=== PATIENT | male | born 1935 | race Caucasian/White ===

== ENCOUNTER 2017-12-18 19:29 | Emergency (ER) | payer MEDICARE, BC ==
--- NOTE | 2017-12-18 19:45 | ER Report ---
History and Physical Time Seen By MD: 19:45 Hx. of Stated Complaint: NOT FROM HERE; COPD; PT SPO2 IN THE CAR WAS 76% ON ROOM AIR; PATIENTS SPO2 AT HOSPITAL WAS 72% ON ROOM AIR TODAY HPI/ROS CHIEF COMPLAINT: shortness of breath, hypoxia HISTORY OF PRESENT ILLNESS: This is an 82 year old male. Moving from [place] to [place]. Has COPD and CHF. Has not been at elevation previously. Had started to get short of breath between [place] and [place]. His nurse who accompanies him, checked his pulse ox and he was in the low 70s on room air. He has a history of DVT and PE, with temporary filter that has been removed and is on twice daily Eliquis. He has mild cough. No chest pain. No swelling or pain in legs. No fevers or chills. Nurse thought that he had some mild rales in the left lung base. No musculoskeletal pain or back pain. Allergies: Coded Allergies: Sulfa (Sulfonamide Antibiotics) (Verified Allergy, Unknown, 12/18/17) cefuroxime (Verified Allergy, Unknown, 12/18/17) fluticasone (Verified Allergy, Unknown, 12/18/17) ranitidine (Verified Allergy, Unknown, 12/18/17) salmeterol (Verified Allergy, Unknown, 12/18/17) tamsulosin (Verified Allergy, Unknown, 12/18/17) Home Meds Reported Medications Umeclidinium Brm/Vilanterol Tr (Anoro Ellipta 62.5-25 Mcg INH) 1 Each Disk.w.dev 12/18/17 Pantoprazole Sodium (PANTOPRAZOLE SODIUM) 40 Mg Tablet.dr, 40 MG PO QDAY, TAB.SR 12/18/17 Furosemide (FUROSEMIDE) 20 Mg Tablet, 20 TAB PO Q6H, TAB 12/18/17 Apixaban (ELIQUIS) 5 Mg Tablet, 5 MG PO 12/18/17 Metoprolol Tartrate (METOPROLOL TARTRATE) 25 Mg Tablet, 1 TAB PO BID, TAB 12/18/17 Prednisone 10 Mg Tab (PREDNISONE 10 MG TAB) 10 Mg Tablet, 5 MG PO BID, #3 TAB 12/18/17 Budesonide (BUDESONIDE) 0.25 Mg/2 Ml Ampul.neb, 0.25 MG IH BID, ML 12/18/17 Albuterol Sulfate 0.083% (ALBUTEROL SULFATE 0.083%) 2.5 Mg/3 Ml Vial.neb, 2.5 MG INH, INH 12/18/17 Reviewed Nurses Notes: Yes Constitutional Vital Sign - Last 24 Hours 12/18/17 12/18/17 12/18/17 12/18/17 19:36 19:37 19:59 20:03 Temp 97.8 Pulse 81 77 Resp 17 12 B/P (MAP) 131/77 120/79 (93) Pulse Ox 73 95 O2 Delivery Room Air O2 Flow Rate 4.0 12/18/17 12/18/17 12/18/17 12/18/17 20:14 20:26 20:26 20:29 Pulse 96 76 ??? Resp 16 27 Pulse Ox 95 95 O2 Delivery Nasal Cannula O2 Flow Rate 1.0 12/18/17 12/18/17 12/18/17 12/18/17 20:30 20:33 20:59 21:00 Pulse 72 77 Resp 14 22 B/P (MAP) 107/75 (86) 114/71 (85) Pulse Ox 91 12/18/17 12/18/17 12/18/17 12/18/17 21:15 21:30 21:45 22:10 Pulse 75 75 78 Resp 10 20 11 B/P (MAP) 121/52 (75) 119/69 (86) Pulse Ox 92 92 92 12/18/17 12/18/17 12/18/17 12/18/17 22:15 22:30 22:45 23:00 Pulse 74 72 75 71 Resp 9 11 9 10 B/P (MAP) 111/62 (78) 109/68 (82) Pulse Ox 95 95 95 94 12/18/17 12/18/17 12/19/17 12/19/17 23:15 23:30 00:00 00:15 Pulse 75 79 Resp 11 14 B/P (MAP) 113/71 (85) 109/70 (83) Pulse Ox 94 94 12/19/17 12/19/17 12/19/17 00:55 00:55 01:00 Pulse 83 78 Resp 14 14 Pulse Ox 90 O2 Delivery Nasal Cannula O2 Flow Rate 1.0 Physical Exam General Appearance: The patient is alert. No acute distress. Eyes: Pupils are equal, round. No pallor, injection or icterus. ENT: Mucous membranes are moist. Normal oral mucosa and posterior oropharynx. Neck: Supple and non tender. Respiratory: Lungs are clear to auscultation. Cardiovascular: Regular rate and rhythm. No murmurs, gallops or rubs. Normal capillary refill. Gastrointestinal: Abdomen is soft and non tender. Nondistended. Normal active bowel sounds. Neurological: Alert and oriented x3. Skin: Warm and dry. No rashes. Musculoskeletal: Extremities are nontender. No tenderness in palpation of the cervical, thoracic and lumbar spine. DIFFERENTIAL DIAGNOSIS: After history and physical exam, differential diagnosis was considered for shortness breath and hypoxia, likely due to altitude, we'll check for CHF exacerbation, acute coronary syndrome, pulmonary infectious process Medical Decision Making Data Points Result Diagram: 12/18/17194412/18/171944 Laboratory Hematology Test 12/18/17 19:45 12/18/17 23:28 Red Blood Count 4.92 M/uL (4.00-5.60) Mean Corpuscular Volume 86.8 fL (80.0-96.0) Mean Corpuscular Hemoglobin 29.3 pg (26.0-33.0) Mean Corpuscular Hemoglobin Concent 33.8 g/dL (32.0-36.0) Red Cell Distribution Width 14.6 % (11.5-14.5) Mean Platelet Volume 7.2 fL (7.2-11.1) Neutrophils (%) (Auto) 61.7 % (39.4-72.5) Lymphocytes (%) (Auto) 17.5 % (17.6-49.6) Monocytes (%) (Auto) 12.6 % (4.1-12.4) Eosinophils (%) (Auto) 7.2 % (0.4-6.7) Basophils (%) (Auto) 1.0 % (0.3-1.4) Nucleated RBC Relative Count (auto) 0.2 /100WBC Neutrophils # (Auto) 3.5 K/uL (2.0-7.4) Lymphocytes # (Auto) 1.0 K/uL (1.3-3.6) Monocytes # (Auto) 0.7 K/uL (0.3-1.0) Eosinophils # (Auto) 0.4 K/uL (0.0-0.5) Basophils # (Auto) 0.1 K/uL (0.0-0.1) Nucleated RBC Absolute Count (auto) 0.01 K/uL Sodium Level 141 mmol/L (137-145) Potassium Level 3.4 mmol/L (3.5-5.0) Chloride Level 97 mmol/L (98-107) Carbon Dioxide Level 34 mmol/L (22-30) Blood Urea Nitrogen 24 mg/dl (9-21) Creatinine 1.20 mg/dl (0.66-1.25) Glomerular Filtration Rate Calc 58.3 Random Glucose 86 mg/dl (75-110) Calcium Level 9.3 mg/dl (8.4-10.2) Total Bilirubin 0.3 mg/dl (0.2-1.3) Aspartate Amino Transf (AST/SGOT) 28 U/L (0-35) Alanine Aminotransferase (ALT/SGPT) 33 U/L (0-56) Alkaline Phosphatase 45 U/L (0-126) B-Type Natriuretic Peptide 130 pg/ml (0-100) Total Protein 6.4 g/dl (6.3-8.2) Albumin 4.0 g/dl (3.5-5.0) Troponin I 0.018 ng/ml Chemistry Test 12/18/17 19:45 12/18/17 23:28 White Blood Count 5.7 k/uL (4.5-11.0) Red Blood Count 4.92 M/uL (4.00-5.60) Hemoglobin 14.4 g/dL (14.0-18.0) Hematocrit 42.7 % (42.0-52.0) Mean Corpuscular Volume 86.8 fL (80.0-96.0) Mean Corpuscular Hemoglobin 29.3 pg (26.0-33.0) Mean Corpuscular Hemoglobin Concent 33.8 g/dL (32.0-36.0) Red Cell Distribution Width 14.6 % (11.5-14.5) Platelet Count 227 K/uL (150-450) Mean Platelet Volume 7.2 fL (7.2-11.1) Neutrophils (%) (Auto) 61.7 % (39.4-72.5) Lymphocytes (%) (Auto) 17.5 % (17.6-49.6) Monocytes (%) (Auto) 12.6 % (4.1-12.4) Eosinophils (%) (Auto) 7.2 % (0.4-6.7) Basophils (%) (Auto) 1.0 % (0.3-1.4) Nucleated RBC Relative Count (auto) 0.2 /100WBC Neutrophils # (Auto) 3.5 K/uL (2.0-7.4) Lymphocytes # (Auto) 1.0 K/uL (1.3-3.6) Monocytes # (Auto) 0.7 K/uL (0.3-1.0) Eosinophils # (Auto) 0.4 K/uL (0.0-0.5) Basophils # (Auto) 0.1 K/uL (0.0-0.1) Nucleated RBC Absolute Count (auto) 0.01 K/uL Glomerular Filtration Rate Calc 58.3 Calcium Level 9.3 mg/dl (8.4-10.2) Total Bilirubin 0.3 mg/dl (0.2-1.3) Aspartate Amino Transf (AST/SGOT) 28 U/L (0-35) Alanine Aminotransferase (ALT/SGPT) 33 U/L (0-56) Alkaline Phosphatase 45 U/L (0-126) B-Type Natriuretic Peptide 130 pg/ml (0-100) Total Protein 6.4 g/dl (6.3-8.2) Albumin 4.0 g/dl (3.5-5.0) Troponin I 0.018 ng/ml EKG/Imaging EKG Interpretation 12 lead EKG: Rhythm: normal sinus rhythm, rate 73 [place]: normal QRS: normal ST segments: normal Imaging EXAMINATION: Chest 2 Views HISTORY: Respiratory distress. COMPARISON: None. FINDINGS: The lungs are hyperinflated with mild emphysematous change. No suspicious focal consolidation. No pleural effusion or pneumothorax. Normal heart size and pulmonary vascularity. Aortic calcification. Visualized osseous structures appear intact. Mild pectus excavatum. IMPRESSION: 1. Hyperinflation with mild emphysematous changes. 2. No other acute findings in the chest. Report Dictated By: Jasvir Borja MD at 12/18/2017 10:33 PM ED Course/Re-evaluation Clinical Indication for ER IV: Hydration, IV Access ED Course Labs are unremarkable other than some mild changes in the metabolic panel. Negative white count. Troponin negative. Repeat troponin after several hours was again negative. EKG without signs of ischemia. X-ray negative for pulmonary infectious process. Discussed all this with the patient. Offered to do a CT scan of the chest to rule out PE but they did not want to do this and I felt like PE was less likely given the fact that he is on [place]. This does appear to be altitude related illness and hypoxia associated with his chronic diseases COPD and CHF. Arrange for home oxygen temporarily to be reevaluated once he follows up with a primary care provider in his new home in [place], [place] Decision to Disposition Date: Dec 19, 2017 Decision to Disposition Time: 00:16 Depart Departure Latest Vital Signs Vital Signs Date Time Temp Pulse Resp B/P (MAP) Pulse Ox O2 Delivery O2 Flow Rate FiO2 12/19/17 01:00 78 14 12/19/17 00:55 90 Nasal Cannula 1.0 12/19/17 00:00 109/70 (83) 12/18/17 19:36 97.8 Impression: Primary Impression: CHF (congestive heart failure) Additional Impressions: Hypoxia Altitude sickness Condition: Improved Disposition: HOME OR SELF-CARE Departure Forms: Home Oxygen, Nebulizer RX Durable Medical Equipment- Oxygen: Oxygen Concentrator, Portable Oxygen Gas Reason for Use/Diagnosis: congestive heart failure, hypoxia, acute altitude sickness Start Date of the Order: Dec 19, 2017 Dosage or Concentration (if applicable) - LPM: 2 Route of Administration (if applicable): Nasal Cannula Frequency of Use: Continuous Duration Home O2 Required: 4 Duration Units: Months Room Air Oxygen Saturation: 73 ER Prescribing Physician's Name: Chelsea Vance NPI Numbers for Local ER MDs: [id number] Patient Instructions: Heart Failure (ED), Hypoxia (ED), Mountain Sickness (ED) Additional Instructions: Your lower oxygen is a combination of your heart failure and higher elevation here. No other problems noted on exam and labs tonight. We would like to have you use oxygen at 2 liters by nasal canula continuously until you follow-up with primary care at your new home in [place]. Problem Qualifiers Primary Impression: CHF (congestive heart failure) Heart failure type: unspecified Heart failure chronicity: unspecified Qualified Codes: I50.9 - Heart failure, unspecified Additional Impressions: Altitude sickness Encounter type: initial encounter Qualified Codes: T70.29XA - Other effects of high altitude, initial encounter CHELSEA VANCE MD Dec 18, 2017 19:45
[2017-12-18] MEDS ORDERED: PANT40TA65 PO (20:04)
[2017-12-18] MEDS ORDERED: APIX5TAB PO (20:04)
[2017-12-18] MEDS ORDERED: UMEC1DIS (20:04)
[2017-12-18] MEDS ORDERED: FURO-45 PO (20:04)
[2017-12-18] MEDS ORDERED: METO25TA93 PO (20:04)
[2017-12-18] MEDS ORDERED: PRED-1 PO (20:04)
[2017-12-18] MEDS ORDERED: ALBU2.5V36 INH (20:04)
[2017-12-18] MEDS ORDERED: BUDE0.256 IH (20:04)
[2017-12-18] MEDS ORDERED: ALBUTEROL/IPRATROPIUM 3 ML NEB NEB ONE (20:05)
[2017-12-18 20:08] LABS: PLATELET COUNT, AUTOMATED 227 K/uL (150-450)
--- NOTE | 2017-12-18 22:40 | RADIOLOGY IMAGING REPORT ---
FACILITY: [facility] - [place] PATIENT NAME: Siddhartha Flores : 1935 MR: [id number] V: [id number] EXAM DATE: ORDERING PHYSICIAN: CHELSEA WHYTE TECHNOLOGIST: Location: [facility] - [place] Patient: Siddhartha Flores : 1935 Visit/Account:[id number] Date of Sevice: 12/18/2017 EXAMINATION: Chest 2 Views HISTORY: Respiratory distress. COMPARISON: None. FINDINGS: The lungs are hyperinflated with mild emphysematous change. No suspicious focal consolidation. No ple ural effusion or pneumothorax. Normal heart size and pulmonary vascularity. Aortic calcification. Visualized osseous structures appear intact. Mild pectus excavatum. IMPRESSION: 1. Hyperinflation with mild emphysematous changes. 2. No other acute findings in the chest. Report Dictated By: Jasvir Borja MD at 12/18/2017 10:33 PM Report E-Signed By: Jasvir Borja MD at 12/18/2017 10:35 PM WSN:[id number]
[2017-12-19] VITALS: BP 109/70
[2017-12-19] MEDS ORDERED: ALBUTEROL 2.5 MG/3 ML NEB NEB ONE (00:35)
--- NOTE | 2017-12-19 06:34 | EKG ---
FACILITY: [facility] PATIENT NAME: NICHOLAS AYALA : [id number] MR: [id number] V: [id number] EXAM DATE: ORDERING PHYSICIAN: CHELSEA WHYTE TECHNOLOGIST: ZEE Test Reason : DYSPNEA Blood Pressure : / mmHG Vent. Rate : 073 BPM Atrial Rate : 073 BPM P-R Int : 168 ms QRS Dur : 102 ms QT Int : 436 ms P-R-T Axes : 074 232 083 degrees QTc Int : 480 ms Normal sinus rhythm Indeterminate axis Cannot rule out Inferior infarct , age undetermined Abnormal ECG Confirmed by Norman Arellano ([id number]) on 12/19/2017 7:46:56 AM Referred By: Confirmed By:Norman Valdes
== END 2017-12-19 01:13 | disposition home or self-care (01) ==
LOC: ER 20:23
DX: I50.9 Heart failure, unspecified (principal); T70.29XA Other effects of high altitude, initial encounter; R09.02 Hypoxemia
CPT/HCPCS: 36415; 71046; 83880; 84484; 85025; 93005; 94640; 99284; J7613; J7620; 82040; 82247; 82310; 82374; 82435; 82565; 82947; 84075; 84132; 84155; 84295; 84450; 84460; 84520